=== PATIENT | male | born 1960 | race Caucasian/White ===

== ENCOUNTER 2025-08-16 20:25 | Emergency (ER) | payer OTHER, SELFPAY ==
[2025-08-16 20:28] VITALS: BP 180/95
--- NOTE | 2025-08-16 23:04 | ED.GENMED ---
History of Present Illness
General
Chief Complaint: DVT/Possible Blood Clot
Source: patient
Exam Limitations: none
Time Seen by Provider: 08/16/25 22:38
Nursing documentation reviewed up to this point in time: agreed with
History of Present Illness
History of Present Illness:
Patient presents to ED secondary to pain and swelling, along with redness noted along left lower leg on the lateral aspect, after completing 14-hour plane ride recently. Denies calf pain. Denies chest pain or shortness of breath. Denies fever or
chills. Denies direct trauma. Denies previous history of similar symptoms. Patient has had varicose vein in his left leg for over 20 years.
Past History
Past History
ED Past Medical History: None
ED Past Surgical History: None
Social History
Tobacco: Non-smoker
Alcohol: None
Drug: None
Personal:
Living: with family
Review of Systems
Review of Systems
Allergies reviewed?: Yes
All Other Systems: ROS reviewed and negative except as documented in HPI and ROS
Constitutional: Reports no symptoms; Denies fever
Respiratory: Reports no symptoms; Denies trouble breathing
Cardiac: Reports no symptoms; Denies chest pain
Musculoskeletal: Reports other (leg pain w redness)
Skin: Reports no symptoms
Neurological: Reports no symptoms
Phy Exam
Physical Exam
Physical Exam:
Physical Exam
General: no apparent distress, not acutely ill. afebrile
Head: nc/at. eomi
Neck: supple. normal range of motion
Neuro: alert and oriented x 3. no focal neurological deficits
Skin: no rash
Psychiatric: well kept. interactive and cooperative
Extremities: LLE: an approx 1cm area of erythema/swelling along lateral aspect along varicose vein, with mild tenderness. no calf tenderness/swelling/erythema
Course
Orders/Labs/Results
Orders:
Orders
08/16/25 20:31
US Legs, Left [US Periph Venous LOWER Ext LT] Urgent
Comment:
Reason For Exam: r/o blood clot; redness, swelling
Vital Signs
Initial and Last Documented VS:
Initial Vital Signs
Temp Pulse Resp BP Pulse Ox
97.4 F 63 18 180/95 99
08/16/25 20:28 08/16/25 20:28 08/16/25 20:28 08/16/25 20:28 08/16/25 20:28
Last Documented Vital Signs
Temp Pulse Resp BP Pulse Ox
97.4 F 63 18 180/95 99
08/16/25 20:28 08/16/25 20:28 08/16/25 20:28 08/16/25 20:28 08/16/25 23:04
MDM/Problems Addressed
MDM/Problems Addressed:
Close tremor ultrasound report reviewed and discussed with patient. Will advise warm compress application along with NSAIDs for symptomatic relief. Patient will be referred to vascular surgery for an outpatient consultation. Return precautions
provided.
*Pulse Oximetry
SaO2: 99
Oxygen Mode of Delivery: Room air
Patient hypoxic: no
*Critical Care Note
Total Time (30-74mins, 75-104mins- exclusive of procedures): Not Applicable
ED Attending Note
-
Portions of this chart may have been created with voice recognition software.� Occasional wrong word or��sound alike� substitutions may have occurred due to the inherent limitations of voice recognition software.
Discharge Plan
Departure
Patient Disposition: Home (Routine Discharge)
Date of Disposition: 08/16/25
Time of Disposition: 23:04
Patient with high blood pressure during this ER visit?: Yes
Condition: Good
Discharge Problem:
Varicose vein of leg, Superficial vein thrombosis
Instructions: Varicose Veins (DC), Superficial vein phlebitis and thrombosis
Prescriptions:
No Action
hydrocodone-acetaminophen [Vicodin] 1 EACH tablet
1 ea PO Q4HPRN PRN (Reason: severe pain) Qty: 10 0RF
Referrals:
Oswaldo Mims MD [Family Provider, Family Practice]
Polo Shearer III, MD [Active, Vascular Surgery]
Activity Restrictions/Additional Instructions:
As discussed, please apply warm compress to affected area, along with consultation with referred vascular surgeon. Please consider return to ED with worsening symptoms.
Interventions
Interventions:
*Risk Screen - Suicide Last Done: 08/16/25 20:28
*General Assessment Last Done: 08/16/25 22:30
*Neglect/Abuse Screening Last Done: 08/16/25 20:28
*ED- Fall Risk Assessment Last Done: 08/16/25 22:30
*ED COVID-19 Vaccine History Last Done: 08/16/25 22:30
*ED Influenza Vaccine History Last Done: 08/16/25 22:30
*Nursing Disposition Last Done: 08/16/25 23:13
ED-Peripheral Vascular Assessment Last Done: 08/16/25 22:30
ED-Skin Assessment Last Done: 08/16/25 22:30
Discharge Date and Time
Discharge Date/Time: 08/16/25 23:13
Print Language: SINHALA
== END 2025-08-16 23:13 | disposition home or self-care (01) ==
LOC: EMR 20:25
PROVIDERS: EMERGENCY PHYSICIAN Emergency Medicine; FAMILY PHYSICIAN Family Medicine
DX: I83.92 Asymptomatic varicose veins of left lower extremity (principal); I82.812 Embolism and thrombosis of superficial veins of left lower extremity; R03.0 Elevated blood-pressure reading, without diagnosis of hypertension
CPT/HCPCS: 99284; 93971

== ENCOUNTER → 2025-09-21 14:53 | Outpatient (REF) | payer OTHER, SELFPAY | LOC: HWEVLT 14:53 | PROVIDERS: ATTENDING PHYSICIAN Radiology Vascular & Interventional Radiology | DX: I83.892 Varicose veins of left lower extremity with other complications (principal) | CPT/HCPCS: 93971 ==